=== PATIENT | female | born 1965 | race Caucasian/White ===

== ENCOUNTER 2025-04-21 07:29 | Outpatient (CLI) | payer OTHER | END 2025-04-21 07:30 | disposition home or self-care (01) | LOC: CSHCP 07:29 | PROVIDERS: ATTEND Nurse Practitioner Family | DX: Z12.2 Encounter for screening for malignant neoplasm of respiratory organs (principal); F17.200 Nicotine dependence, unspecified, uncomplicated; J44.9 Chronic obstructive pulmonary disease, unspecified; J98.11 Atelectasis | CPT/HCPCS: 71271; 94060; 94664; 94726; 94729; 94760 ==

== ENCOUNTER 2025-05-05 14:45 | Outpatient (CLI) | payer OTHER | END 2025-05-05 14:46 | disposition home or self-care (01) | LOC: CSHMRI 14:45 | PROVIDERS: ATTEND Nurse Practitioner Family | DX: M25.511 Pain in right shoulder (principal); M75.121 Complete rotator cuff tear or rupture of right shoulder, not specified as traumatic ==

== ENCOUNTER 2025-05-12 13:21 | Outpatient (CLI) | payer OTHER ==
[2025-05-12 14:14] LABS: Estimated GFR - POC 72.0
== END 2025-05-12 13:22 | disposition home or self-care (01) ==
LOC: CSHMRI 13:21
PROVIDERS: ATTEND Nurse Practitioner Family
DX: K76.89 Other specified diseases of liver (principal); N28.1 Cyst of kidney, acquired
CPT/HCPCS: 36415; 74183; 82565